=== PATIENT | female | born 1960 | race Asian ===

== ENCOUNTER → 2017-04-13 | Outpatient (CLI) | payer OTHER ==
--- NOTE | 2017-04-16 19:01 | Diagnostic Imaging Report ---
Bilateral screening mammogram The current study was also evaluated with a Computer Aided Detection (CAD) system. INDICATION: Screening. No current complaints stated on the questionnaire. COMPARISON: 2008 bilateral mammogram and 2009 right breast mammogram. FINDINGS: The breasts are composed of heterogeneously dense parenchyma which may decrease mammographic sensitivity. There is overall decrease in the degree of density in the breasts on both sides. There is a previously noted lesion in the outer aspect of the right breast which appears less prominent on the current exam probably due to resolving or diminishing cyst. Bilateral benign-appearing calcifications are seen. IMPRESSION: Heterogeneously dense parenchyma with no suspicious focal lesion. Annual screening mammogram is recommended. ACR BI-RADS Category 2: Benign findings. Result letter will be mailed to the patient. Note: At least 10% of breast cancer is not imaged by mammography. Dictated by: Dictated on workstation # [id number]
== END ==
LOC: RAD 14:14
PROVIDERS: ATTEND Family Medicine
DX: Z12.31 Encounter for screening mammogram for malignant neoplasm of breast (principal)
CPT/HCPCS: 77067

== ENCOUNTER 2017-11-29 08:14 | Outpatient (RCR) | payer OTHER ==
[~2017-11-29 08:14] MED LIST: GLIM4TAB PO; METF10002 PO
[2017-12-12] MEDS ORDERED: UBID100C44 PO (09:49)
[2017-12-12] MEDS ORDERED: ATOR40TA PO (09:49)
[2017-12-12] MEDS ORDERED: MULT-974 PO (09:49)
[2017-12-12] MEDS ORDERED: OMG1KC PO (09:49)
[2017-12-12] MEDS ORDERED: ASPI-983 PO (09:49)
[2017-12-12] MEDS ORDERED: NICO-586 TD (09:50)
== END 2018-02-27 | disposition home or self-care (01) ==
LOC: CARD 08:14
PROVIDERS: ATTEND Internal Medicine Cardiovascular Disease
DX: I63.9 Cerebral infarction, unspecified (principal); R77.8 Other specified abnormalities of plasma proteins; E13.9 Other specified diabetes mellitus without complications; E78.5 Hyperlipidemia, unspecified; Z72.0 Tobacco use
CPT/HCPCS: 93225; 93226

== ENCOUNTER → 2017-12-10 | Outpatient (CLI) | payer OTHER ==
[~2017-12-10] MED LIST changes: +ASPI-983 PO; +ATOR40TA PO; +METF1000 PO; -METF10002 PO; +MULT-974 PO; +NICO-586 TD; +OMG1KC PO; +REGADENOSON 0.4 MG/5 ML SYR (LEXISCAN) IV ONE; +UBID100C44 PO
[2017-12-10] MEDS: CATHETER FLUSH 10 ML SYR IV PRN ×2 (08:21→09:27)
[2017-12-10 09:26] VITALS: BP 123/51
--- NOTE | 2017-12-10 15:53 | STRESS TEST ---
DATE OF SERVICE: 12/10/2017 LEXISCAN MYOVIEW STRESS TEST REPORT REFERRING PHYSICIAN: Dr. Urbina. Baseline heart rate is 65, baseline blood pressure 123/51. Baseline EKG is sinus rhythm with no ischemic changes. In summary, the patient received 10.87 mCi of technetium-99 Myoview and the resting images were obtained. Then, the patient received 0.4 mg of Lexiscan followed by 32.6 mCi of technetium-99 Myoview. Throughout the test, there were no EKG changes. The resting and stress images were reviewed and compared in the short axis, horizontal long axis, and vertical long axis views. Review of the images showed small left ventricular size with no significant ischemia or infarction. SSS is 0. TID value 0.91. On the gated images, the left ventricular contractility appeared to be normal. Calculated ejection fraction 72%. CONCLUSION: 1. The patient tolerated Lexiscan well. 2. Small left ventricular size with normal contractility. Calculated ejection fraction 72%. 3. No ischemia or infarction on SPECT images. Job ID: [id number] DocumentID: [id number] Dictated Date: 12/10/2017 12:34:31 Seafood Preparer Date: 12/10/2017 15:53:01 Dictated By: SHERRY BLACKWELL MD
== END ==
LOC: CARD 07:59
PROVIDERS: ATTEND Internal Medicine Cardiovascular Disease
DX: I63.9 Cerebral infarction, unspecified (principal); R77.8 Other specified abnormalities of plasma proteins; E11.9 Type 2 diabetes mellitus without complications; E78.5 Hyperlipidemia, unspecified; Z72.0 Tobacco use
CPT/HCPCS: 78452; 93017

== ENCOUNTER 2017-12-12 08:32 | Day surgery (SDC) | payer OTHER ==
[2017-12-12] VITALS (14 sets, daily range): BP systolic 96–129; BP diastolic 53–74
[~2017-12-12] VITALS: Ht 157.5 cm; Wt 58.1 kg
[~2017-12-12 08:32] MED LIST changes: -ASPI-983 PO; -ATOR40TA PO; -MULT-974 PO; -NICO-586 TD; -OMG1KC PO; -REGADENOSON 0.4 MG/5 ML SYR (LEXISCAN) IV ONE; -UBID100C44 PO
--- OUTSIDE RECORDS SUMMARY | 2017-12-12 08:42 | XMS REPORT | CCD ---
Author Author [facility] Address [address] [place] [address] Phone Care Team Providers Care Used Car Salesperson Name Role Phone PP Unavailable CCM Unavailable Summary Purpose Interface Exchange Insurance Providers Payer name Policy type / Coverage type Covered republican ID Effective Begin Date Effective End Date [employer] Commercial Insurance [id number] Unknown Family History Family History data not found Social History Social History Element Codes Description Effective Dates Marital status Unknown Skip 03/14/2017 Number of children Unknown 0 03/14/2017 Employment Unknown Currently unemployed 03/14/[address]: [id number] Current every day smoker 03/14/2017 Number of cigarettes/day Unknown < 10 -1/4 of a pack- updated 03/14/17 03/14/2017 Allergies, Adverse Reactions, Alerts Allergies, Adverse Reactions, Alerts data not found Past Medical History Illness Codes Condition Status Onset Date Resolved Date Other transient cerebral ischemic attacks and related syndromes ICD-9: 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.9 ICD-10: G45.8 Active 11/19/2017 Unknown Encounter for general adult medical examination without abnormal findings ICD-9: V70.0 ICD-10: Z00.00 Active 01/09/2016 Unknown Type 2 diabetes mellitus without complications ICD-9: 250.00 ICD-10: E11.9 Active 01/09/2016 Unknown Carpal tunnel syndrome, left upper limb ICD-9: 354.0 ICD-10: G56.02 Active 01/09/2016 Unknown Diabetes Unknown Active 09/06/2015 Unknown Clubbing of fingers ICD-9: 781.5 ICD-10: R68.3 Active 09/05/2015 Unknown Problems Condition Codes Effective Dates Condition Status Other transient cerebral ischemic attacks and related syndromes ICD-9: 435.9 ICD-10: G45.8 11/19/2017 Active Encounter for general adult medical examination without abnormal findings ICD-9: V70.0 ICD-10: Z00.00 01/09/2016 Active Type 2 diabetes mellitus without complications ICD-9: 250.00 ICD-10: E11.9 01/09/2016 Active Carpal tunnel syndrome, left upper limb ICD-9: 354.0 ICD-10: G56.02 01/09/2016 Active Diabetes Unknown 09/06/2015 Active Clubbing of fingers ICD-9: 781.5 ICD-10: R68.3 09/05/2015 Active Medications Medication Codes Instructions Start Date Stop Date Status Fill Instructions metformin 1,000 mg tablet RxNorm: 085638 TABLET(S) PO TAKE 1 TABLET BY MOUTH TWICE DAILY 12/05/2017 06/02/2018 Active Fill with next refill atorvastatin 40 mg tablet RxNorm: 210700 1 Tablet(s) PO QHS 04/01/2018 Active Nicoderm CQ 7 mg/24 hr daily transdermal patch RxNorm: 882993 1 Patch TD QAM remove old patch prior to placing new one 11/06/2017 12/05/2017 Inactive atorvastatin 40 mg tablet RxNorm: 005987 1 Tablet(s) PO QHS 12/02/2017 Inactive Nicoderm CQ 7 mg/24 hr daily transdermal patch RxNorm: 088378 1 Patch TD QAM 11/06/2017 11/05/2017 Inactive metformin 1,000 mg tablet RxNorm: 014759 TABLET(S) PO TAKE 1 TABLET BY MOUTH TWICE DAILY 08/27/2017 11/24/2017 Inactive Fill with next refill metformin 1,000 mg tablet RxNorm: 534780 TABLET(S) PO TAKE 1 TABLET BY MOUTH TWICE DAILY 05/29/2017 08/26/2017 Inactive Fill with next refill glimepiride 4 mg tablet RxNorm: 955530 TAKE 1 TABLET BY MOUTH EVERY MORNING 05/09/2017 05/03/2018 Active metformin 1,000 mg tablet RxNorm: 895481 TABLET(S) PO TAKE 1 TABLET BY MOUTH TWICE DAILY 03/02/2017 05/28/2017 Inactive Fill with next refill metformin 1,000 mg tablet RxNorm: 611368 TABLET(S) PO TAKE 1 TABLET BY MOUTH TWICE DAILY 01/30/2017 02/28/2017 Inactive Fill with next refill glimepiride 4 mg tablet RxNorm: 442346 TAKE 1 TABLET BY MOUTH EVERY MORNING 08/14/2016 05/08/2017 Inactive glimepiride 4 mg tablet RxNorm: 643087 TAKE 1 TABLET BY MOUTH EVERY MORNING 02/17/2016 08/13/2016 Inactive metformin 1,000 mg tablet RxNorm: 257906 Tablet(s) PO TAKE 1 TABLET BY MOUTH TWICE DAILY 01/20/2016 01/13/2017 Inactive Fill with next refill naproxen 500 mg tablet RxNorm: 814290 1 Tablet(s) PO BID 201503/13/2017 Inactive metformin 500 mg tablet RxNorm: 860795 TAKE 1 TABLET BY MOUTH TWICE DAILY 09/29/2015 01/19/2016 Inactive metformin 500 mg tablet RxNorm: 025397 TAKE 1 TABLET BY MOUTH TWICE DAILY 08/24/2015 09/22/2015 Inactive metformin 500 mg tablet RxNorm: 944764 TAKE 1 TABLET BY MOUTH TWICE DAILY 07/26/2015 08/09/2015 Inactive metformin 500 mg tablet RxNorm: 483353 1 Tablet(s) PO BID 03/2403/23/2015 Inactive metformin 500 mg tablet RxNorm: 219157 1 Tablet(s) PO BID 03/2407/21/2015 Inactive [SAVINGS FOR NON-COVERED DRUGS -- [id number], PCN: [id number], Group: [id number], ID # [id number], Questions: . THIS IS NOT INSURANCE.] aspirin 81 mg tablet RxNorm: 160185 1 Tablet(s) PO daily No Start Date Active Fish Oil capsule RxNorm: 1 Capsule(s) PO daily No Start Date Active glimepiride 4 mg tablet RxNorm: 917383 1 Tablet(s) PO daily No Start Date 02/16/2016 Inactive Medication Administered No Medication Administered data Immunizations No Immunization data Assessments Condition Codes Effective Dates Other transient cerebral ischemic attacks and related syndromes ICD-10: G45.8 ICD-9: 435.9 11/19/2017 Encounter for general adult medical examination without abnormal findings ICD-10: Z00.00 ICD-9: V70.0 03/14/2017 Type 2 diabetes mellitus without complications ICD-10: E11.9 ICD-9: 250.00 03/14/2017 Carpal tunnel syndrome, left upper limb ICD-10: G56.02 ICD-9: 354.0 01/10/2016 Clubbing of fingers ICD-10: R68.3 ICD-9: 781.5 09/06/2015 Reason For Visit Reason For Visit Effective Dates Notes Hospital Follow Up 11/19/2017 stroke/TIA diabetes mellitus 03/14/2017 wrist pain 01/10/2016 wrist pain 09/06/2015 Results Observation Observation Code Item Item Code Result Date Hgb A1C With Eag Estimation 968669 GLYCOHEMOGLOBIN A1C 96236-9 03/21/2017 Comp Metabolic Jfx424 NA 137 mEq/L 03/15/2017 Comp Metabolic Kuv280 K 4.3 mEq/L 03/15/2017 Comp Metabolic Nzf596 CL 101 mEq/L 03/15/2017 Comp Metabolic Buj423 CO2 29.0 mEq/L 03/15/2017 Comp Metabolic Msr968 ANION GAP 11 03/15/2017 Comp Metabolic Ttg227 GLUCOSE 181 mg/dL 03/15/2017 Comp Metabolic Mmz188 Creat 0.7 mg/dL 03/15/2017 Comp Metabolic Brh951 eGFR 92 ml/min/1.73m2 03/15/2017 Comp Metabolic Jve585 BUN 16 mg/dL 03/15/2017 Comp Metabolic Wsr498 B/C Ratio 22.9 Ratio 03/15/2017 Comp Metabolic Ygp509 CALCIUM 9.4 mg/dL 03/15/2017 Comp Metabolic Vdy553 ALK PHOS 52 U/L 03/15/2017 Comp Metabolic Wmf017 AST(SGOT) 16 U/L 03/15/2017 Comp Metabolic Rec730 ALT(SGPT) 21 U/L 03/15/2017 Comp Metabolic Usl477 BILI T 0.4 mg/dL 03/15/2017 Comp Metabolic Eig283 ALBUMIN 4.4 g/dL 03/15/2017 Comp Metabolic Min011 TPRO 7.4 g/dL 03/15/2017 Comp Metabolic Zfb364 GLOB 3.0 g/dL 03/15/2017 Comp Metabolic Gpq442 A/G Ratio 1.4 Ratio 03/15/2017 Comp Metabolic Zqf533 Osmo 280 mOsmo 03/15/2017 Microalbumin Ilh055 MicroAlb <0.7 mg/dL 03/15/2017 Lipid Ord30 CHOL 192 mg/dL 03/15/2017 Lipid Ord30 HDL 69.0 mg/dl 03/15/2017 Lipid Ord30 TRIG 144 mg/dL 03/15/2017 Lipid Ord30 LDL 94 mg/dL 03/15/2017 Lipid Ord30 C/HDL 2.8 Ratio 03/15/2017 Tsh Ord6 hTSH II 1.76 uIU/mL 03/15/2017 Cbc With Differential Ord2 WBC 6.61 K/ul 03/15/2017 Cbc With Differential Ord2 RBC 5.40 M/ul 03/15/2017 Cbc With Differential Ord2 HGB 13.9 g/dl 03/15/2017 Cbc With Differential Ord2 Neut% 46.4 % 03/15/2017 Cbc With Differential Ord2 HCT 41.6 % 03/15/2017 Cbc With Differential Ord2 Lymph% 44.2 % 03/15/2017 Cbc With Differential Ord2 MCV 77.0 fl 03/15/2017 Cbc With Differential Ord2 MCH 25.7 pg 03/15/2017 Cbc With Differential Ord2 [place]% 6.5 % 03/15/2017 Cbc With Differential Ord2 MCHC 33.4 pg 03/15/2017 Cbc With Differential Ord2 Eos% 2.1 % 03/15/2017 Cbc With Differential Ord2 PLT 276 K/ul 03/15/2017 Cbc With Differential Ord2 Baso% 0.8 % 03/15/2017 Cbc With Differential Ord2 Neut ABS# 3.07 K/ul 03/15/2017 Cbc With Differential Ord2 RDW 13.5 % 03/15/2017 Cbc With Differential Ord2 Lymph ABS# 2.92 K/ul 03/15/2017 Cbc With Differential Ord2 [place] ABS# 0.4 K/ul 03/15/2017 Cbc With Differential Ord2 Eos ABS# 0.1 K/ul 03/15/2017 Cbc With Differential Ord2 Baso ABS# 0.1 K/ul 03/15/2017 Hgb A1C With Eag Estimation 334393 GLYCOHEMOGLOBIN A1C 51242-2 01/17/2016 Comp Metabolic Vem150 NA 132 mEq/L 01/10/2016 Comp Metabolic Ulo650 K 4.4 mEq/L 01/10/2016 Comp Metabolic Zuw086 CL 95 mEq/L 01/10/2016 Comp Metabolic Cco197 CO2 26.0 mEq/L 01/10/2016 Comp Metabolic Jjo952 ANION GAP 15 01/10/2016 Comp Metabolic Pie649 GLUCOSE 117 mg/dL 01/10/2016 Comp Metabolic Sls950 Creat 0.7 mg/dL 01/10/2016 Comp Metabolic Pvm634 eGFR 96 ml/min/1.73m2 01/10/2016 Comp Metabolic Ewt358 BUN 10 mg/dL 01/10/2016 Comp Metabolic Whg876 B/C Ratio 14.7 Ratio 01/10/2016 Comp Metabolic Wbf990 CALCIUM 9.5 mg/dL 01/10/2016 Comp Metabolic Vdl745 ALK PHOS 49 U/L 01/10/2016 Comp Metabolic Unh758 AST(SGOT) 16 U/L 01/10/2016 Comp Metabolic Npr063 ALT(SGPT) 17 U/L 01/10/2016 Comp Metabolic Qlh176 BILI T 0.6 mg/dL 01/10/2016 Comp Metabolic Tha027 ALBUMIN 4.4 g/dL 01/10/2016 Comp Metabolic Jpw296 TPRO 7.4 g/dL 01/10/2016 Comp Metabolic Thk960 GLOB 3.0 g/dL 01/10/2016 Comp Metabolic Swl956 A/G Ratio 1.5 Ratio 01/10/2016 Comp Metabolic Fjc267 Osmo 265 mOsmo 01/10/2016 Cbc With Differential Ord2 WBC 8.78 K/ul 01/10/2016 Cbc With Differential Ord2 RBC 5.12 M/ul 01/10/2016 Cbc With Differential Ord2 HGB 13.2 g/dl 01/10/2016 Cbc With Differential Ord2 HCT 39.6 % 01/10/2016 Cbc With Differential Ord2 Neut% 52.1 % 01/10/2016 Cbc With Differential Ord2 Lymph% 39.1 % 01/10/2016 Cbc With Differential Ord2 MCV 77.3 fl 01/10/2016 Cbc With Differential Ord2 [place]% 7.6 % 01/10/2016 Cbc With Differential Ord2 MCH 25.8 pg 01/10/2016 Cbc With Differential Ord2 MCHC 33.3 pg 01/10/2016 Cbc With Differential Ord2 Eos% 0.7 % 01/10/2016 Cbc With Differential Ord2 Baso% 0.5 % 01/10/2016 Cbc With Differential Ord2 PLT 339 K/ul 01/10/2016 Cbc With Differential Ord2 RDW 13.1 % 01/10/2016 Cbc With Differential Ord2 Neut ABS# 4.58 K/ul 01/10/2016 Cbc With Differential Ord2 Lymph ABS# 3.43 K/ul 01/10/2016 Cbc With Differential Ord2 [place] ABS# 0.7 K/ul 01/10/2016 Cbc With Differential Ord2 Eos ABS# 0.1 K/ul 01/10/2016 Cbc With Differential Ord2 Baso ABS# 0.0 K/ul 01/10/2016 Cbc With Differential Ord2 New Analyzer Notice Please note new ref ranges starting 11-24-2015 due to implemntation of new five part differential hematolgy analyzer. 01/10/2016 Microalbumin Axk853 MicroAlb 0.3 mg/dL 01/10/2016 %Hba1C Zfr687 % HbA1c 31295-0 A1C NON REPORTABLE SENT TO [facility] % 01/10/2016 %Hba1C Uhy693 Gluc Ave A1C NON REPORTABLE SENT TO [facility] mg/dL Lipid Ord30 CHOL 151 mg/dL 01/10/2016 Lipid Ord30 HDL 58.0 mg/dl 01/10/2016 Lipid Ord30 TRIG 91 mg/dL 01/10/2016 Lipid Ord30 LDL 75 mg/dL 01/10/2016 Lipid Ord30 C/HDL 2.6 Ratio 01/10/2016 Tsh Ord6 hTSH II 0.60 uIU/mL 01/10/2016 Review of Systems System Result Effective Dates Eyes No eye discharge 11/19/2017 Eyes No eye erythema 11/19/2017 Eyes No vision change 11/19/2017 Ears/Nose/Throat/Neck No nasal allergies 11/19/2017 Ears/Nose/Throat/Neck No nasal discharge 11/19/2017 Cardiovascular No chest pain/pressure 06/2018 Cardiovascular No dyspnea 11/19/2017 Cardiovascular No edema 11/19/2017 Respiratory No chest congestion 2017 Respiratory No cough 11/19/2017 Gastrointestinal No abdominal pain 2017 Gastrointestinal No nausea 11/19/2017 Gastrointestinal No vomiting 11/19/2017 Dermatologic No rash 11/19/2017 Neurologic No alteration of consciousness 11/19/2017 Endocrine cold sensitivity 11/19/2017 Endocrine diabetes mellitus type 2 2017 Constitutional No recent illness 2017 Constitutional No chills 11/19/2017 Constitutional No diaphoresis 11/19/2017 Constitutional No fever 11/19/2017 Respiratory No cigarette smoking 2017 Musculoskeletal joint complaint 2017 Constitutional No recent illness 2016 Constitutional No anorexia 03/14/2017 Constitutional No night sweats 2016 Constitutional No chills 03/14/2017 Constitutional No diaphoresis 03/14/2017 Constitutional No fatigue 03/14/2017 Constitutional No fever 03/14/2017 Constitutional No insomnia 03/14/2017 Constitutional No malaise 03/14/2017 Eyes No eye discharge 03/14/2017 Eyes No eye erythema 03/14/2017 Eyes No vision change 03/14/2017 Ears/Nose/Throat/Neck No dizziness 2016 Ears/Nose/Throat/Neck No nasal allergies 03/14/2017 Ears/Nose/Throat/Neck No nasal discharge 03/14/2017 Ears/Nose/Throat/Neck No sinus congestion 03/14/2017 Cardiovascular No chest pain/pressure 01/2017 Cardiovascular No dyspnea 03/14/2017 Cardiovascular No edema 03/14/2017 Respiratory No chest congestion 2016 Respiratory cigarette smoking 03/14/2017 Respiratory No cough 03/14/2017 Gastrointestinal No abdominal pain 2016 Gastrointestinal constipation 03/14/2017 Gastrointestinal No diarrhea 03/14/2017 Gastrointestinal No dyspepsia 03/14/2017 Gastrointestinal No dysphagia 03/14/2017 Gastrointestinal No nausea 03/14/2017 Gastrointestinal No vomiting 03/14/2017 Genitourinary/Nephrology No dysuria 03/14 Genitourinary/Nephrology No flank pain Musculoskeletal carpal tunnel syndrome Dermatologic No rash 03/14/2017 Dermatologic No sores 03/14/2017 Neurologic No alteration of consciousness 03/14/2017 Psychiatric No anxiety 03/14/2017 Psychiatric No depression 03/14/2017 Endocrine diabetes mellitus type 2 2016 Endocrine cold sensitivity 03/14/2017 Constitutional No recent illness 2015 Constitutional No anorexia 01/10/2016 Constitutional No night sweats 2015 Constitutional No chills 01/10/2016 Constitutional No diaphoresis 01/10/2016 Constitutional No fatigue 01/10/2016 Constitutional No fever 01/10/2016 Constitutional No insomnia 01/10/2016 Constitutional No malaise 01/10/2016 Eyes No eye discharge 01/10/2016 Eyes No eye erythema 01/10/2016 Eyes No vision change 01/10/2016 Ears/Nose/Throat/Neck No dizziness 2015 Ears/Nose/Throat/Neck No nasal allergies 01/10/2016 Ears/Nose/Throat/Neck No nasal discharge 01/10/2016 Ears/Nose/Throat/Neck No sinus congestion 01/10/2016 Cardiovascular No chest pain/pressure Cardiovascular No dyspnea 01/10/2016 Cardiovascular No edema 01/10/2016 Respiratory No chest congestion 2015 Respiratory cigarette smoking 01/10/2016 Respiratory No cough 01/10/2016 Gastrointestinal No abdominal pain 2015 Gastrointestinal constipation 01/10/2016 Gastrointestinal No diarrhea 01/10/2016 Gastrointestinal No dyspepsia 01/10/2016 Gastrointestinal No dysphagia 01/10/2016 Gastrointestinal No nausea 01/10/2016 Gastrointestinal No vomiting 01/10/2016 Genitourinary/Nephrology No dysuria Genitourinary/Nephrology No flank pain Musculoskeletal carpal tunnel syndrome Dermatologic No rash 01/10/2016 Dermatologic No sores 01/10/2016 Neurologic No alteration of consciousness 01/10/2016 Psychiatric No anxiety 01/10/2016 Psychiatric No depression 01/10/2016 Constitutional No recent illness 2014 Constitutional No anorexia 09/06/2015 Constitutional No night sweats 2014 Constitutional No chills 09/06/2015 Constitutional No diaphoresis 09/06/2015 Constitutional No fatigue 09/06/2015 Constitutional No fever 09/06/2015 Constitutional No insomnia 09/06/2015 Constitutional No malaise 09/06/2015 Eyes No eye discharge 09/06/2015 Eyes No eye erythema 09/06/2015 Eyes No vision change 09/06/2015 Ears/Nose/Throat/Neck No dizziness 2014 Ears/Nose/Throat/Neck No nasal discharge 09/06/2015 Ears/Nose/Throat/Neck No nasal allergies 09/06/2015 Ears/Nose/Throat/Neck No sinus congestion 09/06/2015 Cardiovascular No chest pain/pressure Cardiovascular No dyspnea 09/06/2015 Cardiovascular No edema 09/06/2015 Respiratory No chest congestion 2014 Respiratory No cough 09/06/2015 Respiratory cigarette smoking 09/06/2015 Gastrointestinal constipation 09/06/2015 Gastrointestinal No diarrhea 09/06/2015 Gastrointestinal No abdominal pain 2014 Gastrointestinal No nausea 09/06/2015 Gastrointestinal No vomiting 09/06/2015 Gastrointestinal No dyspepsia 09/06/2015 Gastrointestinal No dysphagia 09/06/2015 Genitourinary/Nephrology No flank pain Genitourinary/Nephrology No dysuria 09/06 Musculoskeletal carpal tunnel syndrome Dermatologic No rash 09/06/2015 Dermatologic No sores 09/06/2015 Neurologic No alteration of consciousness 09/06/2015 Physical Exam Exam Name System Name Item Name Status Result Effective Dates Notes Full Exam - General 1994 Constitutional general appearance Development: well developed 11/19/2017 None Full Exam - General 1994 Constitutional general appearance Development: appears stated age 0111/19/2017 None Full Exam - General 1994 Eyes pupils and irises Overall: pupils equal, round, reactive to light and accomodation 11/19/2017 None Full Exam - General 1994 Ears/Nose/Throat otoscopic exam Overall: external auditory canals clear 11/19/2017 None Full Exam - General 1994 Ears/Nose/Throat otoscopic exam Overall: tympanic membranes clear 11/19/2017 None Full Exam - General 1994 Ears/Nose/Throat oral cavity/pharynx/larynx Overall: oral mucosa clear 11/19/2017 None Full Exam - General 1994 Respiratory auscultation Overall: breath sounds clear bilaterally 11/19/2017 None Full Exam - General 1994 Respiratory respiratory effort/rhythm Overall: no retractions 11/19/2017 None Full Exam - General 1994 Respiratory respiratory effort/rhythm Overall: normal rate 11/19/2017 None Full Exam - General 1994 Cardiovascular extremities Clubbing present: fingers 11/19/2017 None Full Exam - General 1994 Cardiovascular auscultation of heart Overall: regular rate 11/19/2017 None Full Exam - General 1994 Cardiovascular auscultation of heart Overall: normal heart sounds 11/19/2017 None Full Exam - General 1994 Abdomen abdominal exam Overall: no tenderness 11/19/2017 None Full Exam - General 1994 Abdomen abdominal exam Overall: normal bowel sounds 11/19/2017 None Full Exam - General 1994 Lymphatic neck nodes Overall: anterior cervical chain benign 11/19/2017 None Full Exam - General 1994 Lymphatic neck nodes Overall: posterior cervical chain benign 11/19/2017 None Full Exam - General 1994 Neurologic cranial nerves Overall: crainial nerves 2 - 12 grossly intact 11/19/2017 None Full Exam - General 1994 Psychiatric orientation/consciousness Overall: oriented to person, place and time 11/19/2017 None Full Exam - General 1994 Musculoskeletal digits and nails Nails: clubbing 11/19/2017 None Full Exam - General 1994 Musculoskeletal lower extremity Palpation - knee: crepitus 11/19/2017 None Full Exam - General 1994 Musculoskeletal lower extremity ROM - knee: pain with flexion 11/19/2017 None Full Exam - General 1994 Constitutional general appearance Development: well developed 03/14/2017 None Full Exam - General 1994 Constitutional general appearance Development: appears stated age 0503/14/2017 None Full Exam - General 1994 Eyes pupils and irises Overall: pupils equal, round, reactive to light and accomodation 03/14/2017 None Full Exam - General 1994 Ears/Nose/Throat otoscopic exam Overall: external auditory canals clear 03/14/2017 None Full Exam - General 1994 Ears/Nose/Throat otoscopic exam Overall: tympanic membranes clear 03/14/2017 None Full Exam - General 1994 Ears/Nose/Throat oral cavity/pharynx/larynx Overall: oral mucosa clear 03/14/2017 None Full Exam - General 1994 Respiratory auscultation Overall: breath sounds clear bilaterally 03/14/2017 None Full Exam - General 1994 Respiratory respiratory effort/rhythm Overall: no retractions 03/14/2017 None Full Exam - General 1994 Respiratory respiratory effort/rhythm Overall: normal rate 03/14/2017 None Full Exam - General 1994 Cardiovascular extremities Clubbing present: fingers 03/14/2017 None Full Exam - General 1994 Cardiovascular auscultation of heart Overall: regular rate 03/14/2017 None Full Exam - General 1994 Cardiovascular auscultation of heart Overall: normal heart sounds 03/14/2017 None Full Exam - General 1994 Abdomen abdominal exam Overall: no tenderness 03/14/2017 None Full Exam - General 1994 Abdomen abdominal exam Overall: normal bowel sounds 03/14/2017 None Full Exam - General 1994 Lymphatic neck nodes Overall: anterior cervical chain benign 03/14/2017 None Full Exam - General 1994 Lymphatic neck nodes Overall: posterior cervical chain benign 03/14/2017 None Full Exam - General 1994 Musculoskeletal digits and nails Nails: clubbing 03/14/2017 None Full Exam - General 1994 Musculoskeletal upper extremity Overall: normal shoulder 03/14/2017 None Full Exam - General 1994 Musculoskeletal upper extremity Overall: normal elbow 03/14/2017 None Full Exam - General 1994 Musculoskeletal upper extremity Overall: normal wrist 03/14/2017 Pain in left wrist, down to thumb and pointer finger. no crepitus, no decreased range of motion or instability, Full Exam - General 1994 Musculoskeletal upper extremity Palpation - wrist: positive Tinel's test 03/14/2017 None Full Exam - General 1994 Integument inspection of skin Overall: few scattered moles, no gross abnormalities 03/14/2017 None Full Exam - General 1994 Integument inspection of skin Overall: no rash, lesions 03/14/2017 None Full Exam - General 1994 Neurologic cranial nerves Overall: crainial nerves 2 - 12 grossly intact 03/14/2017 None Full Exam - General 1994 Psychiatric orientation/consciousness Overall: oriented to person, place and time 03/14/2017 None Full Exam - General 1994 Musculoskeletal lower extremity Overall: knee benign 03/14/2017 None Full Exam - General 1994 Musculoskeletal lower extremity Overall: foot benign 03/14/2017 None Full Exam - General 1994 Neurologic deep tendon reflexes Overall: deep tendon reflexes intact 03/14/2017 None Full Exam - General 1994 Neurologic sensation Touch: (specify location of deficit): light touch intact throughout bilateral feet 2016 None Full Exam - General 1994 Neurologic sensation Touch: (specify location of deficit): two-point discrimination intact 03/14/2017 None Full Exam - General 1994 Neurologic sensation Touch: (specify location of deficit): stereognosis intact bialteral feet 03/14/2017 None Full Exam - General 1994 Constitutional general appearance Development: well developed 01/10/2016 None Full Exam - General 1994 Constitutional general appearance Development: appears stated age 0201/10/2016 None Full Exam - General 1994 Eyes pupils and irises Overall: pupils equal, round, reactive to light and accomodation 01/10/2016 None Full Exam - General 1994 Ears/Nose/Throat otoscopic exam Overall: external auditory canals clear 01/10/2016 None Full Exam - General 1994 Ears/Nose/Throat otoscopic exam Overall: tympanic membranes clear 01/10/2016 None Full Exam - General 1994 Ears/Nose/Throat oral cavity/pharynx/larynx Overall: oral mucosa clear 01/10/2016 None Full Exam - General 1994 Respiratory auscultation Overall: breath sounds clear bilaterally 01/10/2016 None Full Exam - General 1994 Respiratory respiratory effort/rhythm Overall: no retractions 01/10/2016 None Full Exam - General 1994 Respiratory respiratory effort/rhythm Overall: normal rate 01/10/2016 None Full Exam - General 1994 Cardiovascular extremities Clubbing present: fingers 01/10/2016 None Full Exam - General 1994 Cardiovascular auscultation of heart Overall: regular rate 01/10/2016 None Full Exam - General 1994 Cardiovascular auscultation of heart Overall: normal heart sounds 01/10/2016 None Full Exam - General 1994 Abdomen abdominal exam Overall: no tenderness 01/10/2016 None Full Exam - General 1994 Abdomen abdominal exam Overall: normal bowel sounds 01/10/2016 None Full Exam - General 1994 Lymphatic neck nodes Overall: anterior cervical chain benign 01/10/2016 None Full Exam - General 1994 Lymphatic neck nodes Overall: posterior cervical chain benign 01/10/2016 None Full Exam - General 1994 Musculoskeletal digits and nails Nails: clubbing 01/10/2016 None Full Exam - General 1994 Musculoskeletal upper extremity Overall: normal shoulder 01/10/2016 None Full Exam - General 1994 Musculoskeletal upper extremity Overall: normal elbow 01/10/2016 None Full Exam - General 1994 Musculoskeletal upper extremity Overall: normal wrist 01/10/2016 Pain in left wrist, down to thumb and pointer finger. no crepitus, no decreased range of motion or instability, Full Exam - General 1994 Musculoskeletal upper extremity Palpation - wrist: positive Tinel's test 01/10/2016 None Full Exam - General 1994 Integument inspection of skin Overall: few scattered moles, no gross abnormalities 01/10/2016 None Full Exam - General 1994 Integument inspection of skin Overall: no rash, lesions 01/10/2016 None Full Exam - General 1994 Neurologic cranial nerves Overall: crainial nerves 2 - 12 grossly intact 01/10/2016 None Full Exam - General 1994 Psychiatric orientation/consciousness Overall: oriented to person, place and time 01/10/2016 None Full Exam - General 1994 Constitutional general appearance Development: well developed 09/06/2015 None Full Exam - General 1994 Constitutional general appearance Development: appears stated age 1009/06/2015 None Full Exam - General 1994 Eyes pupils and irises Overall: pupils equal, round, reactive to light and accomodation 09/06/2015 None Full Exam - General 1994 Ears/Nose/Throat otoscopic exam Overall: external auditory canals clear 09/06/2015 None Full Exam - General 1994 Ears/Nose/Throat otoscopic exam Overall: tympanic membranes clear 09/06/2015 None Full Exam - General 1994 Ears/Nose/Throat oral cavity/pharynx/larynx Overall: oral mucosa clear 09/06/2015 None Full Exam - General 1994 Neck thyroid Overall: normal size None Full Exam - General 1994 Neck thyroid Overall: normal consistency 09/06/2015 None Full Exam - General 1994 Neck thyroid Overall: nontender 2014 None Full Exam - General 1994 Neck thyroid Overall: no mass lesions 09/06/2015 None Full Exam - General 1994 Neck inspection of neck Overall: normal size 09/06/2015 None Full Exam - General 1994 Neck inspection of neck Overall: normal appearance 09/06/2015 None Full Exam - General 1994 Respiratory auscultation Overall: breath sounds clear bilaterally 09/06/2015 None Full Exam - General 1994 Respiratory respiratory effort/rhythm Overall: no retractions 09/06/2015 None Full Exam - General 1994 Respiratory respiratory effort/rhythm Overall: normal rate 09/06/2015 None Full Exam - General 1994 Cardiovascular extremities Clubbing present: fingers 09/06/2015 None Full Exam - General 1994 Cardiovascular auscultation of heart Overall: regular rate 09/06/2015 None Full Exam - General 1994 Cardiovascular auscultation of heart Overall: normal heart sounds 09/06/2015 None Full Exam - General 1994 Abdomen abdominal exam Overall: no tenderness 09/06/2015 None Full Exam - General 1994 Abdomen abdominal exam Overall: normal bowel sounds 09/06/2015 None Full Exam - General 1994 Lymphatic neck nodes Overall: anterior cervical chain benign 09/06/2015 None Full Exam - General 1994 Lymphatic neck nodes Overall: posterior cervical chain benign 09/06/2015 None Full Exam - General 1994 Musculoskeletal digits and nails Nails: clubbing 09/06/2015 None Full Exam - General 1994 Integument inspection of skin Overall: few scattered moles, no gross abnormalities 09/06/2015 None Full Exam - General 1994 Integument inspection of skin Overall: no rash, lesions 09/06/2015 None Full Exam - General 1994 Neurologic cranial nerves Overall: crainial nerves 2 - 12 grossly intact 09/06/2015 None Full Exam - General 1994 Psychiatric orientation/consciousness Overall: oriented to person, place and time 09/06/2015 None Full Exam - General 1994 Musculoskeletal upper extremity Palpation - wrist: positive Tinel's test 09/06/2015 None Full Exam - General 1994 Musculoskeletal upper extremity Overall: normal wrist 09/06/2015 Pain in left wrist, down to thumb and pointer finger. no crepitus, no decreased range of motion or instability, Full Exam - General 1994 Musculoskeletal upper extremity Overall: normal shoulder 09/06/2015 None Full Exam - General 1994 Musculoskeletal upper extremity Overall: normal elbow 09/06/2015 None Procedures No Procedures data Vital Signs Date Vital 11/19/2017 Blood Pressure 1: 118/78 Code : 8480-6 BMI: 21.5 Code : 85982-7 Heart Rate 1 : 75 bpm Height: 5'4" SpO2: 97% Weight: 125 lbs 03/14/2017 Blood Pressure 1: 114/70 Code : 8480-6 BMI: 21.8 Code : 53624-5 Heart Rate 1 : 72 bpm Height: 5'4" SpO2: 98% Weight: 127 lbs 01/10/2016 Blood Pressure 1: 110/62 Code : 8480-6 BMI: 21.6 Code : 08226-5 Heart Rate 1 : 63 bpm Height: 5'4" SpO2: 99% Weight: 126 lbs 09/06/2015 Blood Pressure 1: 124/70 Code : 8480-6 BMI: 22.3 Code : 65501-2 Heart Rate 1 : 78 bpm Height: 5'4" SpO2: 98% Weight: 130 lbs Functional Status No Functional Status data History of Present Illness Symptom Name Status Result Effective Date Notes Hospital Follow Up Quality acute illness 11/19/2017 None Hospital Follow Up _ Other: stroke 11/19/2017 None Hospital Follow Up Pertinent Findings other neurologic symptoms 11/19/2017 None Hospital Follow Up Pertinent Findings Other: aphasia 11/19/2017 None diabetes mellitus Onset of Symptom onset as an adult 03/14/2017 None diabetes mellitus Quality non-insulin dependent 03/14/2017 None diabetes mellitus Severity mild 03/14/2017 None diabetes mellitus Nutrition regular diet 03/14/2017 None diabetes mellitus Glucose monitoring occasional glucose testing 03/14/2017 None diabetes mellitus Alleviating Factors medication 03/14/2017 None diabetes mellitus Exacerbating Factors diet 03/14/2017 None paresthesia Location on both legs 03/14/2017 None paresthesia Quality tingling 03/14/2017 None paresthesia Onset and Resolution ongoing 03/14/2017 None wrist pain Location on the left 01/10/2016 None wrist pain Quality dull pain 01/10/2016 None wrist pain Alleviating Factors NSAID's 01/10/2016 None wrist pain Alleviating Factors rest 01/10/2016 None wrist pain Alleviating Factors splint 01/10/2016 None wrist pain Exacerbating Factors palmar flexion 01/10/2016 None wrist pain Exacerbating Factors wrist motion 01/10/2016 None wrist pain Pertinent Findings Denies weakness 01/10/2016 None wrist pain Onset of Symptom 6 months ago 01/10/2016 None diabetes mellitus Onset of Symptom onset as an adult 01/10/2016 None diabetes mellitus Quality non-insulin dependent 01/10/2016 None diabetes mellitus Severity mild 01/10/2016 None diabetes mellitus Nutrition regular diet 01/10/2016 None diabetes mellitus Exercise minimal exercise 01/10/2016 None wrist pain Location on the left 09/06/2015 None wrist pain Quality dull pain 09/06/2015 None wrist pain Onset of Symptom 2-3 months ago 09/06/2015 None wrist pain Mechanism of injury repetitive motion 09/06/2015 None wrist pain Alleviating Factors NSAID's 09/06/2015 None wrist pain Alleviating Factors rest 09/06/2015 None wrist pain Alleviating Factors splint 09/06/2015 None wrist pain Exacerbating Factors palmar flexion 09/06/2015 None wrist pain Exacerbating Factors wrist motion 09/06/2015 None wrist pain Pertinent Findings Denies weakness 09/06/2015 None Advance Directives No Advance Directive data Encounters Encounter Performer Location Codes Date EST. PATIENT, LEVEL III Diagnosis: Other transient cerebral ischemic attacks and related syndromes[ICD10 : G45.8] [facility] CPT-4: 59645 2017 ([id number]) PREV VISIT EST AGE 40-64 Diagnosis: Encounter for general adult medical examination without abnormal findings[ICD10: Z00.00] [facility] CPT-4: 21506 03/14/2017 ([id number]) PREV VISIT EST AGE 40-64 Diagnosis: Encounter for general adult medical examination without abnormal findings[ICD10: Z00.00] [facility] CPT-4: 16462 01/10/2016 [id number] EST. PATIENT, LEVEL III Diagnosis: Carpal tunnel syndrome, left upper limb[ICD10: G56.02] Diagnosis: Clubbing of fingers[ICD10: R68.3] Diagnosis: Type 2 diabetes mellitus without complications[ICD10: E11.9] [facility] CPT-4: 16248 09/06/2015 Plan of Care Planned Activity Notes Codes Status Date Visit Plan: Hospital follow up - TIA - pt is to continue medications as ordered - pt had elevated troponin while in the hospital, reports she did not have an ECHO and does not think she saw cardiology - will refer - pt is to go to the ER or notify clinic with any changes, questions, or concerns. 11/19/2017 Appointment: Alondra Campos WPtel: [id number] (30 min) Complex 11/19/2017 Patient Education: Patient Medication Summary Completed 11/19/2017 Care Plan: Referral Order SNOMED-CT : [id number] Pending 11/19/2017 Appointment: Alondra Campos WPtel: [id number] [facility] (30 min) Complex 11/15/2017 Visit Plan: Well Adult - pt was counseled about diet, exercise, and encouraged to follow a heart healthy diet and increase activity level. The patient was instructed to RTC yearly for well adult exams and PRN for acute illnesses. The pt was also instructed to have yearly labs for check of cholesterol, thyroid, chem panel, CBC, and renal functioning. Diabetes Mellitus - controlled - per recent FSBS reports. I have recommended for the patient to have follow up labs prior to the next office visit. The patient has been instructed to continue with current medications as previously directed, continue with regular FSBS monitoring to assure continued control of diabetes. Pt to call for any acute concerns, complaints, or if the blood glucose readings are starting to become less controlled. 03/14/2017 Appointment: Hallie Urbina WPtel: [id number] (15 min) Moderate 03/14/2017 Patient Education: Patient Medication Summary Completed 03/14/2017 Patient Education: Smoking and Tobacco Addiction Completed 03/14/2017 Patient Education: Patient Medication Summary Completed 02/14/2017 Care Plan: %Hba1C LOINC : 02497-9 Pending 02/14/2017 Visit Plan: Well Adult - pt was counseled about diet, exercise, and encouraged to follow a heart healthy diet and increase activity level. The patient was instructed to RTC yearly for well adult exams and PRN for acute illnesses. The pt was also instructed to have yearly labs for check of cholesterol, thyroid, chem panel, CBC, and renal functioning. Diabetes Mellitus - controlled - per recent FSBS reports. I have recommended for the patient to have follow up labs prior to the next office visit. The patient has been instructed to continue with current medications as previously directed, continue with regular FSBS monitoring to assure continued control of diabetes. Pt to call for any acute concerns, complaints, or if the blood glucose readings are starting to become less controlled. Wrist pain - recommended use of anti- inflammatory 01/10/2016 Patient Education: Patient Medication Summary Completed 01/10/2016 Care Plan: [facility] 25759-7 Ordered 01/10/2016 Visit Plan: Diabetes Mellitus I have recommended for the patient to have follow up labs prior to the next office visit, Pt states that they get labs every October. The patient has been instructed to continue with current medications as previously directed, continue with regular FSBS monitoring to assure continued control of diabetes. Pt to call for any acute concerns, complaints, or if the blood glucose readings are starting to become less controlled. Carpal Tunnel of the left wrist - wear brace, do carpal tunnel exercises. Pt does not want to see hand specialist for carpal tunnel. Notify clinic if symptoms worsen or do not improve. Clubbed fingers - Pt is a smoker, has been for 10 years, pt states that she does not want to or plan to quit. Pt refuses to get chest X-ray, states her and her will think about it and maybe get one in October. 09/06/2015 Patient Education: Patient Medication Summary Completed 09/06/2015 Referral: Virgen Guzman Referral Initiated Instructions Comment Carpal Tunnel exercises, wear brace. Notify clinic if pain increases or does not improve. Get labs in October, think about getting chest xray in October. . Diabetes Mellitus I have recommended for the patient to have follow up labs prior to the next office visit, Pt states that they get labs every October. The patient has been instructed to continue with current medications as previously directed, continue with regular FSBS monitoring to assure continued control of diabetes. Pt to call for any acute concerns, complaints, or if the blood glucose readings are starting to become less controlled. Carpal Tunnel of the left wrist - wear brace, do carpal tunnel exercises. Pt does not want to see hand specialist for carpal tunnel. Notify clinic if symptoms worsen or do not improve. Clubbed fingers - Pt is a smoker, has been for 10 years, pt states that she does not want to or plan to quit. Pt refuses to get chest X-ray, states her and her will think about it and maybe get one in October. Power Pudding: equal parts of prune juice, bran flakes, apple sauce - mix together, and take 1-2 tablespoons up to three times daily. The mixture will stay good in the fridge for 10 days. . Well Adult - pt was counseled about diet, exercise, and encouraged to follow a heart healthy diet and increase activity level. The patient was instructed to RTC yearly for well adult exams and PRN for acute illnesses. The pt was also instructed to have yearly labs for check of cholesterol, thyroid, chem panel, CBC, and renal functioning. Diabetes Mellitus - controlled - per recent FSBS reports. I have recommended for the patient to have follow up labs prior to the next office visit. The patient has been instructed to continue with current medications as previously directed, continue with regular FSBS monitoring to assure continued control of diabetes. Pt to call for any acute concerns, complaints, or if the blood glucose readings are starting to become less controlled. . Well Adult - pt was counseled about diet, exercise, and encouraged to follow a heart healthy diet and increase activity level. The patient was instructed to RTC yearly for well adult exams and PRN for acute illnesses. The pt was also instructed to have yearly labs for check of cholesterol, thyroid, chem panel, CBC, and renal functioning. Diabetes Mellitus - controlled - per recent FSBS reports. I have recommended for the patient to have follow up labs prior to the next office visit. The patient has been instructed to continue with current medications as previously directed, continue with regular FSBS monitoring to assure continued control of diabetes. Pt to call for any acute concerns, complaints, or if the blood glucose readings are starting to become less controlled. Wrist pain - recommended use of anti-inflammatory Will refer to cardiology co enzyme Q10 . Hospital follow up - TIA - pt is to continue medications as ordered - pt had elevated troponin while in the hospital, reports she did not have an ECHO and does not think she saw cardiology - will refer - pt is to go to the ER or notify clinic with any changes, questions, or concerns.
--- OUTSIDE RECORDS SUMMARY | 2017-12-12 08:43 | XMS REPORT | CCD ---
Author Author [facility] Address [address] [place] [address] Phone Care Team Providers Care Paraprofessional Education Assistant Name Role Phone PP Unavailable CCM Unavailable Summary Purpose Interface Exchange Insurance Providers Payer name Policy type / Coverage type Covered republican ID Effective Begin Date Effective End Date [employer] Commercial Insurance [id number] Unknown Family History Family History data not found Social History Social History Element Codes Description Effective Dates Marital status Unknown Skip 03/14/2017 Number of children Unknown 0 03/14/2017 Employment Unknown Currently unemployed 03/14/[address]: 17056330 Current every day smoker 03/14/2017 Number of [...] Start Date Stop Date Status Fill Instructions atorvastatin 40 mg tablet RxNorm: 759830 1 Tablet(s) PO QHS 04/01/2018 Active Nicoderm CQ 7 mg/24 hr daily transdermal patch RxNorm: 034905 1 Patch TD QAM remove old patch prior to placing new one 11/06/2017 12/05/2017 Active atorvastatin 40 mg tablet RxNorm: 109806 1 Tablet(s) PO QHS 12/02/2017 Inactive Nicoderm CQ 7 mg/24 hr daily transdermal patch RxNorm: 008627 1 Patch TD QAM 11/06/2017 11/05/2017 Inactive metformin 1,000 mg tablet RxNorm: 988375 TABLET(S) PO TAKE 1 TABLET BY MOUTH TWICE DAILY 08/27/2017 11/24/2017 Inactive Fill with next refill metformin 1,000 mg tablet RxNorm: 386859 TABLET(S) PO TAKE 1 TABLET BY MOUTH TWICE DAILY 05/29/2017 08/26/2017 Inactive Fill with next refill glimepiride 4 mg tablet RxNorm: 660066 TAKE 1 TABLET BY MOUTH EVERY MORNING 05/09/2017 05/03/2018 Active metformin 1,000 mg tablet RxNorm: 962321 TABLET(S) PO TAKE 1 TABLET BY MOUTH TWICE DAILY 03/02/2017 05/28/2017 Inactive Fill with next refill metformin 1,000 mg tablet RxNorm: 508198 TABLET(S) PO TAKE 1 TABLET BY MOUTH TWICE DAILY 01/30/2017 02/28/2017 Inactive Fill with next refill glimepiride 4 mg tablet RxNorm: 510271 TAKE 1 TABLET BY MOUTH EVERY MORNING 08/14/2016 05/08/2017 Inactive glimepiride 4 mg tablet RxNorm: 418325 TAKE 1 TABLET BY MOUTH EVERY MORNING 02/17/2016 08/13/2016 Inactive metformin 1,000 mg tablet RxNorm: 296305 Tablet(s) PO TAKE 1 TABLET BY MOUTH TWICE DAILY 01/20/2016 01/13/2017 Inactive Fill with next refill naproxen 500 mg tablet RxNorm: 705471 1 Tablet(s) PO BID 201503/13/2017 Inactive metformin 500 mg tablet RxNorm: 858756 TAKE 1 TABLET BY MOUTH TWICE DAILY 09/29/2015 01/19/2016 Inactive metformin 500 mg tablet RxNorm: 526214 TAKE 1 TABLET BY MOUTH TWICE DAILY 08/24/2015 09/22/2015 Inactive metformin 500 mg tablet RxNorm: 831751 TAKE 1 TABLET BY MOUTH TWICE DAILY 07/26/2015 08/09/2015 Inactive metformin 500 mg tablet RxNorm: 916255 1 Tablet(s) PO BID 03/2403/23/2015 Inactive metformin 500 mg tablet RxNorm: 068807 1 Tablet(s) PO BID 03/2407/21/2015 Inactive [SAVINGS FOR NON-COVERED DRUGS -- BIN:[id number], PCN: [id number], Group: XXXXX, ID # [id number], Questions: . THIS IS NOT INSURANCE.] aspirin 81 mg tablet RxNorm: 726956 1 Tablet(s) PO daily No Start Date Active Fish Oil capsule RxNorm: 1 Capsule(s) PO daily No Start Date Active glimepiride 4 mg tablet RxNorm: 171181 1 Tablet(s) PO daily No Start Date [...] Result Date Hgb A1C With Eag Estimation 972515 GLYCOHEMOGLOBIN A1C 74932-5 03/21/2017 Tsh Ord6 hTSH II 1.76 uIU/mL 03/15/2017 Lipid Ord30 CHOL 192 mg/dL 03/15/2017 Lipid Ord30 HDL 69.0 mg/dl 03/15/2017 Lipid Ord30 TRIG 144 mg/dL 03/15/2017 Lipid Ord30 LDL 94 mg/dL 03/15/2017 Lipid Ord30 C/HDL 2.8 Ratio 03/15/2017 Microalbumin Udt801 MicroAlb <0.7 mg/dL 03/15/2017 Cbc With Differential Ord2 WBC 6.61 K/ul 03/15/2017 Cbc With Differential Ord2 RBC 5.40 M/ul 03/15/2017 Cbc With Differential Ord2 HGB 13.9 g/dl 03/15/2017 Cbc With Differential Ord2 HCT 41.6 % 03/15/2017 Cbc With Differential Ord2 Neut% 46.4 % 03/15/2017 Cbc With Differential Ord2 MCV 77.0 fl 03/15/2017 Cbc With Differential Ord2 Lymph% 44.2 % 03/15/2017 Cbc With Differential Ord2 [place]% 6.5 % 03/15/2017 Cbc With Differential Ord2 MCH 25.7 pg 03/15/2017 Cbc With Differential Ord2 MCHC 33.4 pg 03/15/2017 Cbc With Differential Ord2 Eos% 2.1 % 03/15/2017 Cbc With Differential Ord2 PLT 276 K/ul 03/15/2017 Cbc With Differential Ord2 Baso% 0.8 % 03/15/2017 Cbc With Differential Ord2 Neut ABS# 3.07 K/ul 03/15/2017 Cbc With Differential Ord2 RDW 13.5 % 03/15/2017 Cbc With Differential Ord2 Lymph ABS# 2.92 K/ul 03/15/2017 Cbc With Differential Ord2 [place] ABS# 0.4 K/ul 03/15/2017 Cbc With Differential Ord2 Eos ABS# 0.1 K/ul 03/15/2017 Cbc With Differential Ord2 Baso ABS# 0.1 K/ul 03/15/2017 Comp Metabolic Rwn936 NA 137 mEq/L 03/15/2017 Comp Metabolic Vpv181 K 4.3 mEq/L 03/15/2017 Comp Metabolic Qhq599 CL 101 mEq/L 03/15/2017 Comp Metabolic Etm731 CO2 29.0 mEq/L 03/15/2017 Comp Metabolic Xsa658 ANION GAP 11 03/15/2017 Comp Metabolic Cpr343 GLUCOSE 181 mg/dL 03/15/2017 Comp Metabolic Huy203 Creat 0.7 mg/dL 03/15/2017 Comp Metabolic Nhg700 eGFR 92 ml/min/1.73m2 03/15/2017 Comp Metabolic Raq781 BUN 16 mg/dL 03/15/2017 Comp Metabolic Tvd414 B/C Ratio 22.9 Ratio 03/15/2017 Comp Metabolic Iuf599 CALCIUM 9.4 mg/dL 03/15/2017 Comp Metabolic Hdj205 ALK PHOS 52 U/L 03/15/2017 Comp Metabolic Zkd749 AST(SGOT) 16 U/L 03/15/2017 Comp Metabolic Udu087 ALT(SGPT) 21 U/L 03/15/2017 Comp Metabolic Zew928 BILI T 0.4 mg/dL 03/15/2017 Comp Metabolic Mix960 ALBUMIN 4.4 g/dL 03/15/2017 Comp Metabolic Jhp619 TPRO 7.4 g/dL 03/15/2017 Comp Metabolic Sea537 GLOB 3.0 g/dL 03/15/2017 Comp Metabolic Hts002 A/G Ratio 1.4 Ratio 03/15/2017 Comp Metabolic Cxj561 Osmo 280 mOsmo 03/15/2017 Hgb A1C With Eag Estimation 434387 GLYCOHEMOGLOBIN A1C 60958-6 01/17/2016 Cbc With Differential Ord2 WBC 8.78 K/ul 01/10/2016 Cbc With Differential Ord2 RBC 5.12 M/ul 01/10/2016 Cbc With Differential Ord2 HGB 13.2 g/dl 01/10/2016 Cbc With Differential Ord2 HCT 39.6 % 01/10/2016 Cbc With Differential Ord2 Neut% 52.1 % 01/10/2016 Cbc With Differential Ord2 MCV 77.3 fl 01/10/2016 Cbc With Differential Ord2 Lymph% 39.1 % 01/10/2016 Cbc With Differential Ord2 MCH 25.8 pg 01/10/2016 Cbc With Differential Ord2 [place]% 7.6 % 01/10/2016 Cbc With Differential Ord2 Eos% 0.7 % 01/10/2016 Cbc With Differential Ord2 MCHC 33.3 pg 01/10/2016 Cbc With Differential Ord2 Baso% 0.5 % 01/10/2016 Cbc With Differential Ord2 PLT 339 K/ul 01/10/2016 Cbc With Differential Ord2 Neut ABS# 4.58 K/ul 01/10/2016 Cbc With Differential Ord2 RDW 13.1 % 01/10/2016 Cbc With Differential Ord2 Lymph ABS# 3.43 K/ul 01/10/2016 Cbc With Differential Ord2 [place] ABS# 0.7 K/ul 01/10/2016 Cbc With Differential Ord2 Eos ABS# 0.1 K/ul 01/10/2016 Cbc With Differential Ord2 Baso ABS# 0.0 K/ul 01/10/2016 Cbc With Differential Ord2 New Analyzer Notice Please note new ref ranges starting 11-24-2015 due to implemntation of new five part differential hematolgy analyzer. 01/10/2016 Lipid Ord30 CHOL 151 mg/dL 01/10/2016 Lipid Ord30 HDL 58.0 mg/dl 01/10/2016 Lipid Ord30 TRIG 91 mg/dL 01/10/2016 Lipid Ord30 LDL 75 mg/dL 01/10/2016 Lipid Ord30 C/HDL 2.6 Ratio 01/10/2016 Tsh Ord6 hTSH II 0.60 uIU/mL 01/10/2016 %Hba1C Dak478 % HbA1c 57375-7 A1C NON REPORTABLE SENT TO B&B % 01/10/2016 %Hba1C Hia419 Gluc Ave A1C NON REPORTABLE SENT TO B&B mg/dL Microalbumin Lkv008 MicroAlb 0.3 mg/dL 01/10/2016 Comp Metabolic Zkt646 NA 132 mEq/L 01/10/2016 Comp Metabolic Afl185 K 4.4 mEq/L 01/10/2016 Comp Metabolic Eph461 CL 95 mEq/L 01/10/2016 Comp Metabolic Hxs375 CO2 26.0 mEq/L 01/10/2016 Comp Metabolic Ptu014 ANION GAP 15 01/10/2016 Comp Metabolic Vqt909 GLUCOSE 117 mg/dL 01/10/2016 Comp Metabolic Iux801 Creat 0.7 mg/dL 01/10/2016 Comp Metabolic Ade011 eGFR 96 ml/min/1.73m2 01/10/2016 Comp Metabolic Wbe606 BUN 10 mg/dL 01/10/2016 Comp Metabolic Xwz928 B/C Ratio 14.7 Ratio 01/10/2016 Comp Metabolic Vsc859 CALCIUM 9.5 mg/dL 01/10/2016 Comp Metabolic Sdq091 ALK PHOS 49 U/L 01/10/2016 Comp Metabolic Two732 AST(SGOT) 16 U/L 01/10/2016 Comp Metabolic Rbl669 ALT(SGPT) 17 U/L 01/10/2016 Comp Metabolic Zow617 BILI T 0.6 mg/dL 01/10/2016 Comp Metabolic Uxg539 ALBUMIN 4.4 g/dL 01/10/2016 Comp Metabolic Chm583 TPRO 7.4 g/dL 01/10/2016 Comp Metabolic Tiy990 GLOB 3.0 g/dL 01/10/2016 Comp Metabolic Lbi869 A/G Ratio 1.5 Ratio 01/10/2016 Comp Metabolic Jxv734 Osmo 265 mOsmo 01/10/2016 Review of Systems System Result Effective [...] Code : 8480-6 BMI: 21.5 Code : 14932-0 Heart Rate 1 : 75 bpm Height: 5'4" SpO2: 97% Weight: 125 lbs 03/14/2017 Blood Pressure 1: 114/70 Code : 8480-6 BMI: 21.8 Code : 22508-9 Heart Rate 1 : 72 bpm Height: 5'4" SpO2: 98% Weight: 127 lbs 01/10/2016 Blood Pressure 1: 110/62 Code : 8480-6 BMI: 21.6 Code : 29831-1 Heart Rate 1 : 63 bpm Height: 5'4" SpO2: 99% Weight: 126 lbs 09/06/2015 Blood Pressure 1: 124/70 Code : 8480-6 BMI: 22.3 Code : 53169-9 Heart Rate 1 : 78 bpm Height: [...] : G45.8] [facility] CPT-4: 22931 2017 (14019) PREV VISIT EST AGE 40-64 Diagnosis: Encounter for general adult medical examination without abnormal findings[ICD10: Z00.00] [facility] CPT-4: 25345 03/14/2017 (08644) PREV VISIT EST AGE 40-64 Diagnosis: Encounter for general adult medical examination without abnormal findings[ICD10: Z00.00] [facility] CPT-4: 89653 01/10/2016 43127 EST. PATIENT, LEVEL III Diagnosis: Carpal tunnel syndrome, left upper limb[ICD10: G56.02] Diagnosis: Clubbing of fingers[ICD10: R68.3] Diagnosis: Type 2 diabetes mellitus without complications[ICD10: E11.9] [facility] CPT-4: 72845 09/06/2015 Plan of Care Planned Activity Notes [...] or concerns. 11/19/2017 Appointment: Alondra Campos WPtel: [address] [facility] (30 min) Complex 11/19/2017 Patient Education: Patient Medication Summary Completed 11/19/2017 Care Plan: Referral Order SNOMED-CT : [id number] Pending 11/19/2017 Appointment: Alondra Campos WPtel: [facility] (30 min) Complex 11/15/2017 Visit Plan: Well [...] less controlled. 03/14/2017 Appointment: Hallie Urbina WPtel: [facility]5 [facility] (15 min) Moderate 03/14/2017 Patient Education: Patient Medication Summary Completed 03/14/2017 Patient Education: Smoking and Tobacco Addiction Completed 03/14/2017 Patient Education: Patient Medication Summary Completed 02/14/2017 Care Plan: %Hba1C LOINC : 35736-2 Pending 02/14/2017 Visit Plan: Well Adult - [...] Medication Summary Completed 01/10/2016 Care Plan: SCREENINGMAMMOGRAPHYDIGITAL LOINC : 19922-4 Ordered 01/10/2016 Visit Plan: Diabetes Mellitus I [...]
[2017-12-12] MEDS ORDERED: LIDOCAINE 2% VISCOUS 15 ML UDC ONE (08:45)
[2017-12-12] MEDS ORDERED: NS IV 1000 ML 1,000 ML ONE (08:46)
[2017-12-12] MEDS ORDERED: NS IV 1000 ML 1,000 ML IV SCH ×2 (09:11→09:30)
[2017-12-12 09:43] LABS: HEMOGLOBIN 13.4 G/DL (11.5-16.0); MEAN PLATELET VOLUME 9.6 FL (7.4-10.4); RED BLOOD COUNT 5.19 10^6/uL (4.35-5.85); WHITE BLOOD COUNT 7.6 10^3/uL (4.3-11.0)
[2017-12-12 09:44] LABS: BILIRUBIN,URINE NEGATIVE (NEGATIVE); CLARITY,URINE CLEAR; COLOR,URINE YELLOW; GLUCOSE, URINE (UA) NEGATIVE (NEGATIVE); KETONES,URINE NEGATIVE (NEGATIVE); LEUKOCYTE ESTERASE ,URINE 1+ (NEGATIVE); NITRITE,URINE NEGATIVE (NEGATIVE); PH,URINE 7 (5-9); PROTEIN,URINE 1+ (NEGATIVE); UROBILINOGEN,URINE NORMAL (NORMAL)
[2017-12-12] MEDS ORDERED: INFLUENZA TRIvalent 2017-2018 0.5 ML/45 MCG SYR IM ONE (09:45)
--- NOTE | 2017-12-12 09:46 | Diagnostic Imaging Report ---
INDICATION: CVA and tobaccoism. The study is performed prior to transesophageal echo. TIME OF EXAM: 9:30 AM COMPARISON: Correlation is made with prior study from 11/02/2017. FINDINGS: The heart size is normal. The lungs are clear. No pleural effusion or pneumothorax is identified. The pulmonary vascularity is normal. IMPRESSION: No acute abnormality detected. Dictated by: Dictated on workstation # [id number]
[2017-12-12] MEDS ORDERED: MULT-974 PO (09:49)
[2017-12-12] MEDS ORDERED: UBID100C44 PO (09:49)
[2017-12-12] MEDS ORDERED: ATOR40TA PO (09:49)
[2017-12-12] MEDS ORDERED: OMG1KC PO (09:49)
[2017-12-12] MEDS ORDERED: ASPI-983 PO (09:49)
[2017-12-12] MEDS ORDERED: NICO-586 TD (09:50)
[2017-12-12 10:01] LABS: PROTHROMBIN TIME PATIENT 13.6 SEC (12.2-14.7)
[2017-12-12 10:02] LABS: BACTERIA,URINE TRACE /HPF; RBC,URINE 0-2 /HPF; SQUAMOUS EPITHELIAL CELL,UR 0-2 /HPF; WBC,URINE RARE /HPF
[2017-12-12 10:09] LABS: ALANINE AMINOTRANSFERASE 38 U/L (0-55); ALBUMIN 4.4 GM/DL (3.2-4.5); ALKALINE PHOSPHATASE 59 U/L (40-136); BILIRUBIN,TOTAL 0.6 MG/DL (0.1-1.0); BUN/CREATININE RATIO 19; CALCIUM 9.5 MG/DL (8.5-10.1); CARBON DIOXIDE 28 MMOL/L (21-32); CHLORIDE 101 MMOL/L (98-107); CHOLESTEROL 99 MG/DL (< 200); CREATININE SERUM 0.83 MG/DL (0.60-1.30); GFR ESTIMATED > 60; GLUCOSE 205 MG/DL (70-105); HDL CHOLESTEROL 43 MG/DL (40-60); POTASSIUM 4.1 MMOL/L (3.6-5.0); SODIUM 138 MMOL/L (135-145); TRIGLYCERIDES 96 MG/DL (<150); VLDL CHOLESTEROL 19 MG/DL (5-40)
[2017-12-12] MEDS ORDERED: fentaNYL INJECTION 100 MCG/2 ML AMP ONE (10:23)
[2017-12-12] MEDS ORDERED: MIDAZOLAM 5 MG/5 ML (VERSED) VIAL ONE (10:23)
--- NOTE | 2017-12-12 10:58 | Cardiac Procedure Note-CS/ASA ---
Pre-Procedure Note Pre-Op Procedure Note H&P Reviewed The H&P was reviewed, patient examined and no changes noted. Date H&P Reviewed: Dec 12, 2017 Time H&P Reviewed: 10:58 Conscious Sedation Pre-Proced Time Reviewed: 10:58 ASA Class: 3 Airway Mallampati Classification: (port gamble appropriate class) I. II. III, IV Lungs Heart ASA score ASA 1: a normal healthy patient ASA 2: a patient with a mild systemic disease (mid diabetes, controlled hypertension, obesity x ASA 3: a patient with a severe systemic disease that limits activity (angina , COPD, prior Myocardial infarction) ASA 4: a patient with an incapacitating disease that is a constant threat to life (CHF, renal failure) ASA 5: a moribund patient not expected to survive 24 hrs. (ruptured aneurysm) ASA 6: a declared brain patient whose organs are being harvested. For emergent operations, add the letter E after the classification Grade 3 Sedation Plan: Analgesia, Amnesia, Plan communicated to team members, Discussed options with patient/fam, Discussed risks with patient/fam Note The patient is an appropriate candidate to undergo the planned procedure, sedation, and anesthesia. The patient immediately re-assessed prior to indication. SHERRY BLACKWELL MD Dec 12, 2017 10:58
== END 2017-12-12 13:00 | disposition home or self-care (01) ==
LOC: CATH 08:32 → SURG 11:16 → CATH 13:00
PROVIDERS: ATTEND Internal Medicine Cardiovascular Disease
DX: I63.9 Cerebral infarction, unspecified (principal); R77.8 Other specified abnormalities of plasma proteins; E11.9 Type 2 diabetes mellitus without complications; E78.5 Hyperlipidemia, unspecified; Z87.891 Personal history of nicotine dependence; Z79.82 Long term (current) use of aspirin; Z79.84 Long term (current) use of oral hypoglycemic drugs; Z79.899 Other long term (current) drug therapy
CPT/HCPCS: 36415; 71045; 80053; 80061; 81000; 85027; 85610; 85730; 87081; 93005; 93320; 93325

== ENCOUNTER → 2021-04-13 | Outpatient (CLI) | payer BC, OTHER ==
[~2021-04-13] MED LIST changes: +ASPI-1238 PO; +ATOR40TA PO; -GLIM4TAB PO; +GLIM4TAB5 PO; +METF-399 PO; -METF1000 PO; +MULT-974 PO; +NICO-586 TD; +OMG1KC PO; +UBID100C44 PO
--- NOTE | 2021-04-13 10:07 | Diagnostic Imaging Report ---
INDICATION: Left breast pain. COMPARISON: 04/13/2017. TECHNIQUE: 2D and 3D bilateral diagnostic mammography was performed with CAD. FINDINGS: The patient does deny having breast pain today. Both breasts remain heterogeneously dense, limiting the sensitivity of mammography. No mass or malignant appearing microcalcifications are seen. There are benign calcifications. The axillae are unremarkable. IMPRESSION: No mammographic features suspicious for malignancy are identified. ACR BI-RADS Category 2: Benign findings. Result letter will be mailed to the patient. Note: At least 10% of breast cancer is not imaged by mammography. Dictated by: Dictated on workstation # [id number]
== END ==
LOC: RAD 09:15
PROVIDERS: ATTEND Family Medicine
DX: N64.4 Mastodynia (principal)
CPT/HCPCS: 77066; G0279; 77062

== ENCOUNTER 2021-06-28 05:35 | Outpatient (CLI) | payer BC ==
[~2021-06-28] VITALS: Ht 155 cm; Wt 59.0 kg
[2021-06-29] MEDS ORDERED: LACT10SO3 PO (08:34)
[2021-06-29] MEDS ORDERED: ATOR20TA66 PO (08:34)
[2021-06-29] MEDS ORDERED: EMPA25TA PO (08:34)
== END 2021-06-29 10:18 | disposition home or self-care (01) ==
LOC: PREOP 05:35
PROVIDERS: ATTEND Surgery
DX: Z01.818 Encounter for other preprocedural examination (principal)

== ENCOUNTER 2021-07-05 08:06 | Day surgery (SDC) | payer BC ==
[~2021-07-05] VITALS: Ht 155 cm; Wt 59.0 kg
[2021-07-05] VITALS (7 sets, daily range): BP systolic 93–138; BP diastolic 64–81
[~2021-07-05 08:06] MED LIST changes: +ATOR20TA66 PO; +EMPA25TA PO; +LACT10SO3 PO
[2021-07-05] MEDS ORDERED: LACTATED RINGERS 1,000 ML IV ONE (08:12)
[2021-07-05] MEDS ORDERED: LACTATED RINGERS 1,000 ML IV STA (08:12)
[2021-07-05] MEDS ORDERED: PROPOFOL INJECTION 50 ML IV ONE (09:14)
--- NOTE | 2021-07-05 10:28 | Progress Note-Post Operative ---
Post-Operative Progess Note Surgeon (s)/Making Machine Operator (s) Surgeon KOJO WATT DO Making Machine Operator: na Pre-Operative Diagnosis screening Post-Operative Diagnosis rectal polyp Procedure & Operative Findings Date of Procedure 07/05/21 Procedure Performed/Findings colonoscopy c snare polypectomy Anesthesia Type per chisel trimmer Estimated Blood Loss Estimated blood loss (mL): na Specimens/Packing Specimens Removed rectal polyp KOJO WATT DO Jul 05, 2021 10:28
--- NOTE | 2021-07-05 10:29 | Discharge Inst-Simple/Standard ---
Discharge Inst-Standard Patient Instructions/Follow Up Plan of Care/Instructions/FU: 2 weeks Olga Activity as Tolerated: Yes Discharge Diet: Regular Diet KOJO WATT DO Jul 05, 2021 10:29
--- NOTE | 2021-07-05 14:00 | OPERATIVE REPORT ---
DATE OF SERVICE: PREOPERATIVE DIAGNOSIS: Screening colonoscopy. POSTOPERATIVE DIAGNOSIS: Rectal polyp. PROCEDURE: Colonoscopy with snare polypectomy of the rectum. SURGEON: Kojo Espinoza DO ANESTHESIA: Per ACCOUNTING ADVISORY SERVICES MANAGER. ESTIMATED BLOOD LOSS: None. COMPLICATIONS: None. INDICATIONS: The patient is a 61-year-old female needing screening colonoscopy. She understands risks and benefits of procedure and wished to proceed with procedure. Consent was signed in the chart. DESCRIPTION OF PROCEDURE: The patient was taken to endoscopy suite, placed in left lateral recumbent position. Timeout was performed. Digital rectal exam was performed. No palpable polyps, masses or ulcerations. Scope was inserted in the rectum and advanced all the way to cecum with minimal difficulty. Prep, still had a fair amount of stool present, but irrigation and suction was able to visualize the majority of the colon. Scope was then slowly retracted back. No polyps, masses or ulcerations within the cecum, ascending, transverse, descending and sigmoid colon. In the rectum, a larger polyp was present, which snare polypectomy was performed. This was obtained for specimen. It had to be withdrawn. Scope was reinserted to the point of polypectomy. The scope was then retroflexed noting no other pathology. Scope was returned to its normal position, slowly withdrawn until completely removed. The patient tolerated procedure well without any complications. She was taken to recovery room in stable condition. RECOMMENDATIONS: I would recommend repeat colonoscopy in one year for reevaluation of this area due to larger polyp. I would recommend a 2-day prep at that time. If the patient has any issues before that would be reevaluated at that time. Job ID: [id number] DocumentID: [id number] Dictated Date: 07/05/2021 10:32:02 Freight Traffic Consultant Date: 07/05/2021 13:58:24 Dictated By: KOJO ESPINOZA DO
--- NOTE | 2021-07-05 15:11 | Anesthesia-General Post-Op ---
MAC Patient Condition Mental Status/LOC: Same as Preop Cardiovascular: Satisfactory Nausea/Vomiting: Absent Respiratory: Satisfactory Pain: Controlled Complications: Absent Post Op Complications Complications None Follow Up Care/Instructions Patient Instructions None needed. Anesthesiology Discharge Order Discharge Order Patient is doing well, no complaints, stable vital signs, no apparent adverse anesthesia problems. No complications reported per nursing. JAY LOMBARDI CRNA Jul 05, 2021 15:11
== END 2021-07-05 11:20 ==
LOC: ENDO 08:06
PROVIDERS: ATTEND Surgery
DX: Z12.11 Encounter for screening for malignant neoplasm of colon (principal); D12.8 Benign neoplasm of rectum; E78.5 Hyperlipidemia, unspecified; E11.9 Type 2 diabetes mellitus without complications; I10 Essential (primary) hypertension; Z79.84 Long term (current) use of oral hypoglycemic drugs; Z79.82 Long term (current) use of aspirin; Z79.899 Other long term (current) drug therapy; Z85.3 Personal history of malignant neoplasm of breast; Z87.891 Personal history of nicotine dependence; Z79.02 Long term (current) use of antithrombotics/antiplatelets; Z83.3 Family history of diabetes mellitus
CPT/HCPCS: 88305

== ENCOUNTER → 2022-12-11 | Outpatient (CLI) | payer BC, OTHER ==
--- NOTE | 2022-12-11 12:19 | Diagnostic Imaging Report ---
INDICATION: Routine screening. COMPARISON: 04/13/2021 and 04/13/2017. TECHNIQUE: 2D and 3D bilateral screening mammography was performed with CAD. FINDINGS: Both breasts are heterogeneously dense, limiting the sensitivity of mammography. No mass or malignant-appearing microcalcifications are seen. There are benign calcifications. The axillae are unremarkable. IMPRESSION: No mammographic features suspicious for malignancy are identified. ACR BI-RADS Category 2: Benign findings. Result letter will be mailed to the patient. Note: At least 10% of breast cancer is not imaged by mammography. Dictated by: Dictated on workstation # [id number]
== END ==
LOC: RAD 09:15
PROVIDERS: ATTEND Nurse Practitioner Family
DX: Z12.31 Encounter for screening mammogram for malignant neoplasm of breast (principal)
CPT/HCPCS: 77063; 77067